=== PATIENT | female | born 1965 | race Caucasian/White ===

== ENCOUNTER 2022-07-03 09:51 | Outpatient (CLI) | payer OTHER, SELFPAY | END 2022-07-03 09:52 | disposition home or self-care (01) | PROVIDERS: PCP Family Medicine; Visit Provider Family Medicine | DX: Z00.00 Encounter for general adult medical examination without abnormal findings (principal); E78.5 Hyperlipidemia, unspecified; N18.9 Chronic kidney disease, unspecified; Z13.6 Encounter for screening for cardiovascular disorders; Z11.59 Encounter for screening for other viral diseases; Z12.4 Encounter for screening for malignant neoplasm of cervix | CPT/HCPCS: 80053; 80061; 82043; 82570; 84156; 86803 ==

== ENCOUNTER 2022-08-18 11:20 | Outpatient (CLI) | payer OTHER, SELFPAY | END 2022-08-18 11:21 | disposition home or self-care (01) | PROVIDERS: PCP Family Medicine; Visit Provider Family Medicine | DX: R53.83 Other fatigue (principal); N18.9 Chronic kidney disease, unspecified; E78.5 Hyperlipidemia, unspecified; R49.0 Dysphonia; J98.8 Other specified respiratory disorders | CPT/HCPCS: 80053; 84443; 86140 ==

== ENCOUNTER 2022-10-30 08:43 | Outpatient (CLI) | payer OTHER, SELFPAY ==
--- NOTE | 2022-10-30 09:00 | CRLHL7_ITS ---
For Patients: As a result of the Century Cures Act, medical imaging exams and procedure reports are released immediately into your electronic medical record. You may view this report before your referring provider. If you have questions, please contact your health care provider. INDICATION: Hoarseness, chest/neck pain. TECHNIQUE: Noncontrast CT of the neck with coronal and sagittal reconstruction. COMPARISON: None available. FINDINGS: On limited noncontrast evaluation, normal appearance of the aerodigestive structures with no obvious mass or asymmetry. No cervical lymphadenopathy. Normal parotid and submandibular glands. Multinodular thyroid, the largest hypodense nodule in the right upper pole measuring up to 9 millimeters. Intrathoracic findings are reported concurrently performed CT chest. The major vascular structures are normal in appearance. No suspicious osseous lesion. IMPRESSION: 1. Subject to limited sensitivity of noncontrast CT in detecting mucosal based lesions, normal appearance of the aerodigestive structures with no asymmetry or mass lesion. 2. Multinodular thyroid gland. Please note that all CT scans at this facility use dose modulation, iterative reconstruction, and/or weight-based dosing when appropriate to reduce radiation dose to as low as reasonably achievable. Dictated by Andres Thayer MD @ 10/30/2022 4:07:58 PM (Electronically Signed)
--- NOTE | 2022-10-30 09:00 | CRLHL7_ITS ---
For Patients: As a result of the Century Cures Act, medical imaging exams and procedure reports are released immediately into your electronic medical record. You may view this report before your referring provider. If you have questions, please contact your health care provider. INDICATION: Hoarseness. Chest discomfort.. TECHNIQUE: CT chest without contrast. COMPARISON: None. FINDINGS: 6 millimeter right thyroid lobe nodule. Heart is normal in size. No pericardial or pleural effusion. No enlarged axillary or mediastinal adenopathy. Evaluation of hilar lymphadenopathy is limited due to lack of IV contrast. Central airways are patent. Lungs are clear. Diffuse hepatic steatosis. Visualized noncontrast sections through the spleen, gallbladder, pancreas, adrenals within normal limits. Hypoplastic right kidney. Simple cyst in the partially visualized left kidney measuring 6 centimeter. No suspicious bony lesion. IMPRESSION: No acute findings. Other findings as discussed above. Please note that all CT scans at this facility use dose modulation, iterative reconstruction, and/or weight-based dosing when appropriate to reduce radiation dose to as low as reasonably achievable. Dictated by Addison Wang MD @ 10/30/2022 2:16:44 PM (Electronically Signed)
== END 2022-10-30 08:44 | disposition home or self-care (01) ==
LOC: CT 08:45
PROVIDERS: PCP Family Medicine; Visit Provider Internal Medicine Pulmonary Disease
DX: R49.0 Dysphonia; E04.1 Nontoxic single thyroid nodule; M54.2 Cervicalgia; J38.3 Other diseases of vocal cords; R05.3 Chronic cough; R06.9 Unspecified abnormalities of breathing
CPT/HCPCS: 70490; 71250

== ENCOUNTER 2023-05-06 13:34 | Outpatient (CLI) | payer OTHER, SELFPAY | END 2023-05-06 13:35 | disposition home or self-care (01) | LOC: FRMREF 13:35 | PROVIDERS: PCP Family Medicine; Visit Provider Family Medicine | DX: Z11.52 Encounter for screening for COVID-19 (principal); R05.1 Acute cough; R07.89 Other chest pain | CPT/HCPCS: 86769 ==

== ENCOUNTER 2023-07-24 15:09 | Outpatient (CLI) | payer OTHER, SELFPAY | END 2023-07-24 15:10 | disposition home or self-care (01) | PROVIDERS: PCP Family Medicine; Visit Provider Family Medicine | DX: Z00.00 Encounter for general adult medical examination without abnormal findings (principal); E78.5 Hyperlipidemia, unspecified; N18.9 Chronic kidney disease, unspecified; K76.0 Fatty (change of) liver, not elsewhere classified; Z13.1 Encounter for screening for diabetes mellitus; Z13.6 Encounter for screening for cardiovascular disorders | CPT/HCPCS: 80053; 80061; 82043; 82570 ==

== ENCOUNTER 2023-07-30 07:35 | Outpatient (CLI) | payer OTHER, SELFPAY | END 2023-07-30 07:36 | disposition home or self-care (01) | LOC: NFLDREF 08-18 12:22 | PROVIDERS: PCP Family Medicine; Referring Provider Family Medicine; Visit Provider Family Medicine | DX: N18.2 Chronic kidney disease, stage 2 (mild) (principal); E78.1 Pure hyperglyceridemia | CPT/HCPCS: 80061; 82043; 82570 ==

== ENCOUNTER 2023-10-01 09:00 | Outpatient (CLI) | payer OTHER, SELFPAY ==
--- NOTE | 2023-10-01 09:15 | CRLHL7_ITS ---
For Patients: As a result of the Century Cures Act, medical imaging exams and procedure reports are released immediately into your electronic medical record. You may view this report before your referring provider. If you have questions, please contact your health care provider. INDICATION: Skin paresthesias. COMPARISON: None. TECHNIQUE: Sagittal T1, T2, and STIR sequences. Axial T2/gradient sequences. FINDINGS: Normal vertebral body and facet alignment. No fractures. No vertebral body loss of height. No spondylolisthesis. No ligamentous injury. No suspicious osseous lesions. Subtle patchy T2 and STIR hyperintensity of the cord at the level of C5 (series 2, image 8; series 6, image 24) may represent chronic myelomalacia or demyelination. No cord atrophy or expansion. Normal signal intensity within the remainder the visualized cord. C1-2: No spinal canal narrowing. C2-3: No spinal canal or neural foraminal narrowing. C3-4: No spinal canal neural foraminal narrowing. C4-5: No spinal canal neural foraminal narrowing. C5-6: Posterior disc bulge. No spinal canal or neural foraminal narrowing. C6-7: Shallow left paracentral disc bulge. No spinal canal neural foraminal narrowing. C7-T1: No spinal canal neural foraminal narrowing. IMPRESSION: 1. Normal alignment. No fractures. 2. Subtle patchy T2 and STIR hyperintensity of the cord of over C5 may represent chronic myelomalacia or demyelination. No cord atrophy or expansion. 3. Normal signal intensity within the remainder of the cord. 4. No spinal canal or neural foraminal narrowing at all levels of the cervical spine Dictated by Zack Thayer MD @ 10/01/2023 2:43:45 PM (Electronically Signed)
--- NOTE | 2023-10-01 10:00 | CRLHL7_ITS ---
For Patients: As a result of the Cures Act, medical imaging exams and procedure reports are released immediately into your electronic medical record. You may view this report before your referring provider. If you have questions, please contact your health care provider. INDICATION: Skin paresthesias. COMPARISON: None. TECHNIQUE: Sagittal T1, T2, and STIR sequences. Axial T2/gradient sequences. FINDINGS: Normal vertebral body facet alignment. No fractures. No vertebral body loss of height. No spondylolisthesis. No ligamentous injury. No suspicious osseous lesions. Normal cord signal. No intradural mass or lesion. No cord atrophy or expansion. No significant spondylotic changes. No prominent disc protrusions or herniations. No spinal canal or neural foraminal narrowing at all levels of the thoracic spine. IMPRESSION: 1. Normal alignment. No fractures. 2. Normal cord signal. No cord atrophy or expansion. 3. No spinal canal or neural foraminal narrowing at all levels Dictated by Zack Thayer MD @ 10/01/2023 2:50:40 PM (Electronically Signed)
== END 2023-10-01 09:01 | disposition home or self-care (01) ==
LOC: MRI 09:01
PROVIDERS: PCP Family Medicine; Visit Provider Family Medicine
DX: R20.2 Paresthesia of skin (principal)
CPT/HCPCS: 72141; 72146

== ENCOUNTER 2024-01-04 14:03 | Outpatient (CLI) | payer OTHER, SELFPAY | END 2024-01-04 14:04 | disposition home or self-care (01) | PROVIDERS: PCP Family Medicine; Visit Provider Family Medicine | DX: E78.1 Pure hyperglyceridemia (principal); N18.2 Chronic kidney disease, stage 2 (mild); K76.0 Fatty (change of) liver, not elsewhere classified; A04.8 Other specified bacterial intestinal infections; R09.89 Other specified symptoms and signs involving the circulatory and respiratory systems; Q60.0 Renal agenesis, unilateral | CPT/HCPCS: 80053; 82103; 82728; 84436; 84443; 84481; 87338 ==

== ENCOUNTER 2024-01-07 07:00 | Outpatient (CLI) | payer OTHER, SELFPAY | END 2024-01-07 07:01 | disposition home or self-care (01) | LOC: NFLDREF 01-08 05:55 | PROVIDERS: PCP Family Medicine; Referring Provider Family Medicine; Visit Provider Family Medicine | DX: A04.8 Other specified bacterial intestinal infections (principal) | CPT/HCPCS: 87338 ==

== ENCOUNTER 2024-06-06 15:05 | Outpatient (CLI) | payer OTHER, SELFPAY ==
--- NOTE | 2024-06-06 15:30 | CRLHL7_ITS ---
For Patients: As a result of the Century Cures Act, medical imaging exams and procedure reports are released immediately into your electronic medical record. You may view this report before your referring provider. If you have questions, please contact your health care provider. Indication: Neck pain Technique: Multiplanar, multisequence MRI of the cervical spine obtained without contrast. Comparison: MRI cervical spine 10/01/2023 Findings: The normal cervical lordosis is preserved. No significant spondylolisthesis. Vertebral body heights are within normal limits. No evidence of acute fracture. Bone marrow signal is unremarkable. Included posterior fossa structures are unremarkable. Visualized spinal cord appears normal in course and caliber. Previously described faint linear signal abnormality at the C5 port is not apparent on this exam, and is favored to have represented artifact on the prior study. No convincing cord signal abnormality. No suspicious findings in the prevertebral or paraspinal soft tissues. Oval 1 cm T2 hyperintense right thyroid nodule. C2-C3: No neural foraminal or spinal canal stenosis. C3-C4: No neural foraminal or spinal canal stenosis. C4-C5: Shallow posterior disc bulge. No neural foraminal or spinal canal stenosis. C5-C6: Shallow posterior disc bulge. No neural foraminal or spinal canal stenosis. C6-C7: Small left central disc protrusion. No neural foraminal or spinal canal stenosis. C7-T1: No neural foraminal or spinal canal stenosis. Impression: 1. Previously described faint signal abnormality at the C5 cord is not apparent on this exam, potentially artifact on the prior study. 2. Normal cord signal. Normal spinal alignment. No acute osseous abnormality. 3. Mild cervical spondylosis. No neural foraminal or spinal canal stenosis. 4. Stable 1 cm right thyroid nodule. Dictated by Tabatha Bishop MD @ 06/07/2024 12:24:13 PM (Electronically Signed)
== END 2024-06-06 15:06 | disposition home or self-care (01) ==
PROVIDERS: PCP Family Medicine; Visit Provider Family Medicine
DX: M54.2 Cervicalgia (principal); M50.30 Other cervical disc degeneration, unspecified cervical region; M47.892 Other spondylosis, cervical region; E04.1 Nontoxic single thyroid nodule
CPT/HCPCS: 72141

== ENCOUNTER 2024-07-28 15:50 | Outpatient (CLI) | payer OTHER, SELFPAY | END 2024-07-28 15:51 | disposition home or self-care (01) | PROVIDERS: PCP Family Medicine; Visit Provider Family Medicine | DX: E78.5 Hyperlipidemia, unspecified (principal); N18.2 Chronic kidney disease, stage 2 (mild) | CPT/HCPCS: 80053; 80061 ==